=== PATIENT | female | born 1975 | race Caucasian/White ===

== ENCOUNTER → 2023-10-08 11:19 | Outpatient (BNVA) | payer OTHER, SELFPAY | PROVIDERS: PCP Internal Medicine; Visit Provider Internal Medicine Rheumatology | DX: M25.50 Pain in unspecified joint (principal); M19.90 Unspecified osteoarthritis, unspecified site; M45.6 Ankylosing spondylitis lumbar region; L40.50 Arthropathic psoriasis, unspecified; L40.0 Psoriasis vulgaris; Z71.85 Encounter for immunization safety counseling; M47.896 Other spondylosis, lumbar region; Z79.899 Other long term (current) drug therapy | CPT/HCPCS: 36415; 72100; 72202; 73130; 73630; 80076; 82085; 82306; 82565; 85025; 85651; 86140; 86200; 86480; 86704; 86803; 86812; 87340 ==

== ENCOUNTER → 2024-01-08 15:11 | Outpatient (BNVA) | payer OTHER, SELFPAY | PROVIDERS: PCP Internal Medicine; Visit Provider Internal Medicine Rheumatology | DX: L40.50 Arthropathic psoriasis, unspecified (principal); Z79.899 Other long term (current) drug therapy; M25.559 Pain in unspecified hip; L40.0 Psoriasis vulgaris; Z71.85 Encounter for immunization safety counseling | CPT/HCPCS: 36415; 80076; 82565; 85025; 86140 ==

== ENCOUNTER → 2024-05-27 15:29 | Outpatient (BNVA) | payer OTHER, SELFPAY | PROVIDERS: PCP Internal Medicine; Visit Provider Internal Medicine Rheumatology | DX: Z79.899 Other long term (current) drug therapy (principal); L40.50 Arthropathic psoriasis, unspecified | CPT/HCPCS: 36415; 82085; 82550 ==

== ENCOUNTER → 2025-01-21 16:01 | Outpatient (BNVA) | payer OTHER, SELFPAY | PROVIDERS: PCP Internal Medicine; Visit Provider Internal Medicine Rheumatology | DX: Z79.899 Other long term (current) drug therapy (principal) | CPT/HCPCS: 36415; 80076; 82565; 85025; 85651; 86140 ==

== ENCOUNTER → 2025-06-07 15:24 | Outpatient (BNVA) | payer OTHER, SELFPAY | PROVIDERS: PCP Internal Medicine; Visit Provider Internal Medicine Rheumatology | DX: Z79.899 Other long term (current) drug therapy (principal) | CPT/HCPCS: 36415; 80076; 82565; 85025; 85651; 86140 ==